=== PATIENT | male | born 1975 | race Caucasian/White ===

== ENCOUNTER 2018-09-24 03:14 | Emergency (ER) | payer BC ==
[2018-09-24 03:32] VITALS: BP 126/88; TEMP 98; O2SAT 99
[2018-09-24] MEDS ORDERED: traMADol HCL 50 MG TAB PO ONE (03:41)
[2018-09-24] MEDS ORDERED: KETOROLAC TROMETHAMINE INJ 30 MG/ML VIAL IM ONE (03:41)
[2018-09-24] MEDS ORDERED: predniSONE 20 MG TAB PO ONE (03:41)
--- NOTE | 2018-09-24 03:45 | ED.PDOC ---
History of Present Illness - General Chief Complaint: Respiratory Problem Stated Complaint: rt rib pain Time Seen by Provider: 09/24/18 03:40 Source: patient Exam Limitations: no limitations - History of Present Illness Initial Comments: the patient is a 43-year-old male presenting to the emergency room after having sneezed and hurt his right lateral chest 1 week ago. He has pain with palpation to the lateral lower rib cage. No crepitus. Air movement is good. He has been taking tramadol without much relief. He also reports of muscle relaxers do not help him. Timing/Duration: 1 week Severity: moderate Improving Factors: nothing Worsening Factors: movement Associated Symptoms: denies symptoms Allergies/Adverse Reactions: Allergies Bee Venom Allergy (Verified 09/24/18 03:32) Home Medications: Ambulatory Orders Acetamin W/Cod #3 Tab [Tylenol w/CODEINE #3] 1 ea PO Q8HR PRN #14 tab 09/24/18 Review of Systems - Review of Systems Constitutional: States: no symptoms reported EENTM: States: no symptoms reported Respiratory: States: no symptoms reported Cardiology: States: chest pain Gastrointestinal/Abdominal: States: no symptoms reported Genitourinary: States: no symptoms reported Musculoskeletal: States: no symptoms reported Skin: States: no symptoms reported Neurological: States: no symptoms reported All other Systems: No Change from Baseline Past Medical History (General) - Patient Medical History Hx Diabetes: - hypoglycemia - Vaccination History Hx Influenza Vaccination: No - Triage Comment ED Triage Comment: pain to right rib area after cough/sneeze last week. Family Medical History - Family History Father Family History: Unknown Physical Exam - Physical Exam General Appearance: Alert, Comfortable, No apparent distress Eye Exam: bilateral normal Ears, Nose, Throat: hearing grossly normal, normal ENT inspection Neck: full range of motion, supple Respiratory: lungs clear, normal breath sounds, no respiratory distress, no accessory muscle use, other - see history of present illness Cardiovascular/Chest: normal peripheral pulses, regular rate, rhythm, no edema Peripheral Pulses: radial,right: 2+, radial,left: 2+ Gastrointestinal/Abdominal: other - bese Rectal Exam: deferred Back Exam: no CVA tenderness, no vertebral tenderness Extremity: normal range of motion, non-tender, normal inspection, no pedal edema Neurologic: pull up hand II-XII nml as tested, alert, normal mood/affect, oriented x 3 Skin Exam: normal color - multiple tattoos Comments: Vital Signs - 24 hr 09/24/18 03:28 Temperature 98.0 F Pulse Rate [ 100 H Left] Respiratory 20 Rate Blood Pressure 126/88 [Left Arm] O2 Sat by Pulse 99 Oximetry Progress - Progress Progress: 09/24/18 03:43 the patient is a 43-year-old male presenting to emergency room secondary to right lateral chest wall pain of one week's duration after sneezing. The patient was given a dose of Toradol, prednisone and tramadol. He'll be written for some Tylenol No. 3 for outpatient as needed use. X-ray shows no evidence of any pneumothorax or overt infiltrate. Keep follow-up with primary care doctor. ER warnings were given. Departure - Departure Clinical Impression: Intercostal muscle strain Qualifiers: Encounter type: initial encounter Qualified Code(s): S29.011A - Strain of muscle and tendon of front wall of thorax, initial encounter Disposition: Discharge to Home or Self Care Condition: Fair Departure Forms: ED Discharge - Pt. Copy, Patient Portal Self Enrollment Instructions: Costochondritis (DC) Diet: regular diet Activity: increase activity as tolerated Prescriptions: Acetamin W/Cod #3 Tab [Tylenol w/CODEINE #3] 1 ea PO Q8HR PRN #14 tab PRN Reason: Moderate To Severe Pain Home Medications: Ambulatory Orders Acetamin W/Cod #3 Tab [Tylenol w/CODEINE #3] 1 ea PO Q8HR PRN #14 tab 09/24/18 Additional Instructions: the patient is a 43-year-old male presenting to emergency room secondary to right lateral chest wall pain of one week's duration after sneezing. The patient was given a dose of Toradol, prednisone and tramadol. He'll be written for some Tylenol No. 3 for outpatient as needed use. X-ray shows no evidence of any pneumothorax or overt infiltrate. Keep follow-up with primary care doctor. ER warnings were given.
--- NOTE | 2018-09-24 04:19 | RAD ---
CLINICAL HISTORY: right lateral chest pain after cough COMPARISON: None. TECHNIQUE: XR CHEST 2 VIEWS 09/24/2018 3:41 AM FILM REPLACEMENT ORDERER FINDINGS: Cardiac silhouette is normal in size. Lungs are clear without consolidation, atelectasis, mass or edema. There is no pleural effusion. There is no pneumothorax. There are no acute osseous findings. IMPRESSION: Clear lungs. Electronically signed by: Adrian Johns MD 09/24/2018 4:16 AM FILM REPLACEMENT ORDERER
== END 2018-09-24 04:32 | disposition home or self-care (01) ==
LOC: ER 03:14
DX: S29.011A Strain of muscle and tendon of front wall of thorax, initial encounter (principal); X50.9XXA Other and unspecified overexertion or strenuous movements or postures, initial encounter; Y92.9 Unspecified place or not applicable
CPT/HCPCS: 71046; J1885; J7512